=== PATIENT | male | born 1990 | race African-American/Black ===

== ENCOUNTER 2018-09-24 05:16 | Inpatient (IN) | payer SELFPAY ==
[2018-09-24] MEDS ORDERED: Pantoprazole 40 MG VIAL ONE (06:10)
[2018-09-24] MEDS ORDERED: Ondansetron PF 4 MG/2 ML Vial ONE ×2 (06:10→15:52)
[2018-09-24 06:17] LABS: #Basophils 0.1 thou/uL (0.0-0.2); #Eosinphils 0.1 thou/uL (0.0-0.7); #Lymphocytes 2.2 thou/uL (1.20-3.40); #Monocytes 0.8 thou/uL (0.11-0.59); #Neutrophils 9.4 thou/uL (1.40-6.50); %Basophils 0.8 % (0.0-1.0); %Eosinophils 0.8 % (0.0-10.0); %Lymphocytes 17.3 % (21.0-51.0); %Monocytes 6.2 % (0.0-10.0); Hemoglobin 14.9 g/dL (14.0-18.0); Mean Corpuscular HGB CONC 31.3 g/dL (32.0-36.0); Mean Corpuscular Hemoglobin 27.8 pg (27.0-31.0); Mean Corpuscular Volume 88.9 fL (78.0-98.0); Mean Platelet Volume 8.6 fL (7.4-10.4); Platelet Count 196 thou/uL (130-400); RBC Distribution Width 11.5 % (11.5-14.5); Red Blood Cell (RBC) Count 5.34 mill/uL (4.70-6.10); White Blood Cell (WBC) Count 12.6 thou/uL (4.8-10.8)
[2018-09-24 06:30] LABS: ALT (SGPT) 16 U/L (8-55); AST (SGOT) 15 U/L (5-34); Albumin 3.9 g/dL (3.5-5.0); Alkaline Phosphatase 45 U/L (40-150); Anion Gap 10 mmol/L (10-20); BUN (Urea Nitrogen) 9 mg/dL (8.9-20.6); Bilirubin, Total 0.6 mg/dL (0.2-1.2); Calc. Creatinine Clearance 0 mL/min (70-130); Calcium 8.9 mg/dL (7.8-10.44); Carbon Dioxide 29 mmol/L (22-29); Chloride 106 mmol/L (98-107); Estimated GFR-MDRD Greater than 90; Globulin 2.3 g/dL (2.4-3.5); Glucose 133 mg/dL (70-105); Lipase 25 U/L (8-78); Potassium 3.6 mmol/L (3.5-5.1); Protein, Total 6.2 g/dL (6.0-8.3); Sodium 141 mmol/L (136-145)
[2018-09-24] MEDS ORDERED: Metoclopramide HCl 10 MG/2 ML VIAL ONE (06:45)
[2018-09-24] MEDS ORDERED: Dicyclomine 20 MG TAB ONE (06:45)
[2018-09-24] MEDS ORDERED: diphenhydrAMINE 50 MG/ML VIAL ONE (06:45)
[2018-09-24 07:27] LABS: Acetaminophen Less than 6.0 mcg/mL (10.0-30.0); Alcohol Less than 10 mg/dL (Less than 10); Salicylate Less than 8.0 mg/dL (15.0-30.0)
[2018-09-24 07:32] LABS: Bilirubin Negative (Negative); Blood, Urine Negative (Negative); Clarity CLOUDY (Clear); Glucose, Urine (Dipstick) Negative (Negative); Leukocyte Negative (Negative); Nitrite Negative (Negative); Protein, Urine (Dipstick) Negative (Neg-Trace); Urobilinogen 0.2 mg/dL (0.2-1.0); pH, Urine 7.5 (5.0-9.0)
[2018-09-24] MEDS ORDERED: Promethazine HCl 25 MG/ML VIAL ONE (07:38)
[2018-09-24 07:41] LABS: Amphetamine Not Detected (NotDetected); Barbiturates Screen Not Detected (NotDetected); Benzodiazepine Screen Not Detected (NotDetected); Cocaine Metabolite Screen Not Detected (NotDetected); Medtox Control Line Valid? VALID (VALID); Medtox Reader # READER 1; Methadone Not Detected (NotDetected); Methamphetamine Not Detected (NotDetected); Opiate Screen Not Detected (NotDetected); Oxycodone Screen Not Detected (NotDetected); Phencyclidine (PCP) Not Detected (NotDetected); THC/Cannabinoid Screen Detected (NotDetected); Tricyclic Screen Not Detected (NotDetected)
[2018-09-24] MEDS ORDERED: Haloperidol Lactate 5 MG/ML VIAL ONE (08:52)
--- NOTE | 2018-09-24 09:07 | CT ---
CT ABDOMEN AND PELVIS WITH IV CONTRAST: HISTORY: Abdominal pain associated with nausea and vomiting. FINDINGS: Lung bases unremarkable. The liver, spleen, pancreas, adrenal glands, and left kidney are normal. T here is an 8 mm cyst of the inferior pole of the right kidney. The gallbladder is distended with a t iny calcified gallstone. No free air or lymphadenopathy is seen in the abdomen or pelvis. There is a tiny amount of fluid in the right lower quadrant adjacent to the cecum. There is fecal material in the colon. An appendix is not definitely seen. No acute osseous abnormalities are identified. IMPRESSION: 1. Distended gallbladder with cholelithiasis. 2. A tiny amount of free fluid adjacent to the cecum. Appendix is not definitely visualized. If th ere is concern for appendicitis, exam should be repeated with enteric and IV contrast. POS: TARA
[2018-09-24] MEDS ORDERED: Diltiazem 125 MG in Sodium Chloride 0.9% 100 ML IVPB SCH ×2 (09:15→12:00)
[2018-09-24 11:14] LABS: CKMB 1.6 ng/mL (0-6.6); Troponin I Less than 0.010 ng/mL (< 0.028)
[2018-09-24] MEDS ORDERED: Ondansetron PF 4 MG/2 ML Vial IVP PRN (11:37)
[2018-09-24] MEDS ORDERED: Acetaminophen 325 MG TAB PO PRN (11:37)
[2018-09-24] MEDS ORDERED: Ondansetron ODT 4 MG TAB SL PRN (11:37)
[2018-09-24] MEDS ORDERED: Loperamide HCl 2 MG CAP PO PRN (11:50)
[2018-09-24] MEDS ORDERED: Morphine 2 MG/ML SYRINGE SLOW IVP PRN ×2 (11:56→21:29)
[2018-09-24] MEDS: Sodium Chloride 0.9% 1,000 ML IV SCH ×2 (13:13→22:53)
[2018-09-24] MEDS ORDERED: ISOVUE-370 76%-LOCM 1 ML ONE (13:19)
--- NOTE | 2018-09-24 13:59 | ULT ---
ULTRASOUND ABDOMEN LIMITED RIGHT LOWER QUADRANT: DATE: 09/24/2018. HISTORY: A 28-year-old male with right lower quadrant abdominal pain and nausea. TECHNIQUE: A focused ultrasound of the right lower quadrant. FINDINGS: The appendix is not visualized. IMPRESSION: Nondiagnostic for appendicitis. POS: CET
--- NOTE | 2018-09-24 14:10 | ULT ---
ULTRASOUND ABDOMEN LIMITED: (RIGHT UPPER QUADRANT) DATE: 09-24-18 HISTORY: 28-year-old male with generalized abdominal pain, nausea, and vomiting. FINDINGS: Gallbladder: Distended. Diffuse mild wall thickening of 3 mm. Within the body and fundus, there is a dependent layer of multiple tiny gallstones, a few mm in size each. Common duct: 6 mm Liver: Normal echogenicity. Pancreas: Normal sonographic appearance. Right kidney: No hydronephrosis. IMPRESSION: 1. Positive for cholelithiasis. 2. Mild mural thickening of the gallbladder. 3. Common duct caliber minimally dilated. JN R POS: CET
[2018-09-24 14:21] VITALS: BMI 21.1
[2018-09-24] MEDS: Piperacillin/Tazobactam 3.375 GM in Sodium Chloride 0.9% 100 ML IVPB SCH ×2 (14:43→22:54)
--- NOTE | 2018-09-24 14:51 | RAD ---
CHEST 1 VIEW: HISTORY: Atrial fibrillation. COMPARISON: None. FINDINGS: Normal cardiac silhouette. The pulmonary vessels and hilum are normal. No masses or consolidation. No pneumothorax or osseous abnormalities. IMPRESSION: No acute cardiopulmonary process. POS: MILEYH
--- NOTE | 2018-09-24 14:58 | CON ---
DATE OF CONSULTATION: 09/24/2018. REQUESTING PHYSICIAN: Dr. Gris Jimenez. HISTORY OF PRESENT ILLNESS: This is a 28-year-old -[place] man who presented to the emergenc y department today. The patient gives a history of insidious onset periumbilical abdominal pain, whi ch started at approximately 0100 hours associated with multiple episodes of nausea and vomiting. The patient denies any diarrhea. He rated his pain at 9/10. The pain has since settled in the right lo wer quadrant. He denies any fevers or chills. Currently, he rates his pain at 10/10. The patient d enies any unexplained weight loss. PAST MEDICAL HISTORY: Denies any previous medical problems except eczema. PAST SURGICAL HISTORY: Denies any previous surgeries. FAMILY HISTORY: Notable for diabetes mellitus and essential hypertension in some aunts. He denies a ny family history of cancer or heart disease. SOCIAL HISTORY: He is employed as a patient account specialist. He admits to occasional intake of ethanol in modera te amounts. He smokes marijuana occasionally. He denies any illicit drug abuse. PREHOSPITALIZATION MEDICATIONS: None. ALLERGIES: Patient denies any known drug allergies. REVIEW OF SYSTEMS: A 10-point review of systems essentially unremarkable except for as stated in pas t medical history and chief complaint. PHYSICAL EXAMINATION: GENERAL: This reveals a 28-year-old normally developed man who was otherwise coherent and interactiv e and appears stated age. The patient is alert and oriented x3, appears to be in moderate acute dist ress secondary to abdominal pain. VITAL SIGNS: Initially, blood pressure 174/87, pulse 115 and irregular, respiratory rate is 18, temp erature is 98.7 degrees Fahrenheit, oxygen saturation 100% on room air. HEENT: Reveals normocephalic and atraumatic. Pupils are equal, round, and reactive to light and acc ommodation. Extraocular muscles are intact bilaterally. He has no sclerae icterus present. Oral mu cosa is pink and moist. No lesions are noted. NECK: Supple. No palpable lymphadenopathy or thyromegaly present. CARDIOVASCULAR: Heart reveals irregular rate and irregular rhythm. LUNGS: Clear to auscultation bilaterally. Breathing regular and unlabored. ABDOMEN: Soft and nondistended. He has right lower quadrant greater than left lower quadrant tender ness to palpation. He has a positive Rovsing sign. Interestingly, the patient also exhibits some ep igastric to right upper quadrant abdominal pain to palpation without any positive Loaiza's. Liver an d spleen are nonpalpable below costal margins. EXTREMITIES: Reveals 2+ radial and pedal pulses bilaterally. No ankle edema is present. NEUROLOGIC: Reveals no focal deficits present. LABORATORY DATA: Today includes a CBC with 12,600 white blood cells, hemoglobin and hematocrit are 1 4.9 and 47.4 respectively. Platelet count is 196,000. Metabolic profile: Sodium 141, potassium 3.6 , chloride is 106, bicarbonate is 29, BUN is 9, creatinine is 1.13, glucose 133, total bilirubin is 0 .6, AST and ALT are noted at 15 and 16 respectively. Serum lipase is also normal at 25. I personally reviewed a CT scan of the abdomen and pelvis, which revealed a distended gallbladder wit h intraluminal gallstones. There is a small amount of free fluid around the cecum. I was not able t o visualize the appendix. I have also reviewed the gallbladder ultrasound, which is remarkable for d istended gallbladder with multiple intraluminal gallstones. There is a gallbladder wall thickening w ithout any pericholecystic fluid present. Common bile duct is upper limits of normal for this patien t's age at 5.8 mm in diameter. IMPRESSION: 1. Acute cholecystitis with cholelithiasis. 2. Highly probable acute appendicitis. PLAN: 1. Laparoscopic cholecystectomy and laparoscopic appendectomy. I have discussed the above findings and recommendation with the patient in the presence of his nurse. 2. I have informed the patient of the risks and benefits of the proposed surgery to include, but not limited to bleeding, infection, injury to bowel, common bile duct or surrounding structures. I also informed the patient that a laparoscopic appendectomy will be warranted in this setting, even if the appendix is judged to be normal on laparoscopic examination due to the patient's history of periumbi lical abdominal pain, which has now settled in the right lower quadrant. The patient indicates under standing of information I have given him today. I answered his questions. Thank you again Dr. Jimenez for allowing me the opportunity to participate in the care of this patient.
--- NOTE | 2018-09-24 15:29 | CON ---
DATE OF CONSULTATION: 09/24/2018 REASON FOR CONSULTATION: Newly-diagnosed atrial fibrillation. HISTORY OF PRESENT ILLNESS: Mr. Lan Stanton is a 28-year-old man who presented to the hospital today with severe abdominal pain, has been found that he has gallstones and probably also has appendicitis . Incidentally, it is noted that he had atrial fibrillation. There is no history of atrial fibrilla tion, no history of cardiac problems. PAST MEDICAL HISTORY: He does have history of inpatient admission to a psychiatric institution in hi s teens, but not recently. PAST SURGICAL HISTORY: Negative. SOCIAL HISTORY: No alcohol, no drug use. No smoking. REVIEW OF SYSTEMS: Really not accurate or obtainable. He has received quite a bit of pain medicine. He is unable to give a reliable history currently, his girlfriend is with him. PHYSICAL EXAMINATION: GENERAL: It is a 28-year-old gentleman, somewhat confused, looks like from the pain medicine. VITAL SIGNS: Blood pressure was high in the emergency room. The pulse is now [address] recent blood pressure in the emergency room this morning was 150/100. NECK: Neck veins are normal. Carotid normal upstrokes. LUNGS: Clear. CARDIAC: Irregularly irregular and tachycardic, no murmur, rub or gallop. ABDOMEN: Tender, only did light palpation. EXTREMITIES: Warm, dry, no clubbing, cyanosis or edema. SKIN: Warm and dry. LABORATORY AND X-RAY FINDINGS: EKG reveals atrial fibrillation with controlled ventricular response. ASSESSMENT: 1. Newly-diagnosed atrial fibrillation. 2. Abdominal pain, has gallstones, probably also has appendicitis. PLAN: 1. He is on intravenous diltiazem for heart rate control. 2. Echocardiogram to be done likely at a later time. He has to go to surgery urgently. 3. Anticoagulation, certainly not indicated at this point. Also, his CHADS-VASc zero at this point pending echocardiogram, we will follow with you.
[2018-09-24] MEDS ORDERED: PROPOFOL 200 MG/20 ML VIAL ONE (15:52)
[2018-09-24] MEDS ORDERED: Glycopyrrolate 0.2 MG/ML 5 ML SYRINGE ONE (15:52)
[2018-09-24] MEDS ORDERED: Dexamethasone 20 MG/5 ML VIAL ONE (15:52)
[2018-09-24] MEDS ORDERED: Succinylcholine Chloride 20 MG/ML 10 ml SYRINGE FS ONE (15:52)
[2018-09-24] MEDS ORDERED: Lidocaine 1% PF 5 ML VIAL ONE (15:52)
[2018-09-24] MEDS ORDERED: Esmolol 100 MG/10 ML VIAL ONE (15:52)
[2018-09-24] MEDS ORDERED: Bupivacaine/Epinephrine 0.25% 30 ML VIAL ONE (18:45)
[2018-09-24] MEDS ORDERED: Fentanyl 100 MCG/2 ML VIAL ONE ×2 (19:02)
[2018-09-24] MEDS ORDERED: Meperidine HCl/PF 25 MG/ML VIAL ONE (21:14)
[2018-09-24] MEDS ORDERED: traMADol HCl 50 MG TAB PO PRN ×2 (21:27)
[2018-09-24] MEDS: Famotidine/PF 20 mg/2ml Vial SLOW IVP SCH (22:53)
[2018-09-24] MEDS: Acetaminophen 500 MG TAB PO SCH (22:53)
[2018-09-25] MEDS: Ketorolac Tromethamine 30 MG/ML VIAL IVP SCH ×3 (00:45→12:50)
--- NOTE | 2018-09-25 02:03 | HP ---
DATE OF ADMISSION: 09/24/2018 CHIEF COMPLAINT: This is a 28-year-old gentleman who presented with an acute onset of abdominal pain , uncontrollable nausea and vomiting. HISTORY OF PRESENT ILLNESS: This 28-year-old man with no particular medical history who presented to the ER with an acute onset of nausea and vomiting and significant abdominal pain. On evaluation her e in the ER, the patient was found to be in atrial fibrillation with RVR. The patient denies any his tory of known atrial fibrillation. He does not complain of any palpitations or chest pain. Denies a ny fever or chills. When I went to evaluate the patient, the patient was very sleepy because he had received morphine. He did give me some history and rest was all with a discussion with the ER physic ritchie and also the evaluation of the documents and the labs. PAST MEDICAL HISTORY: Not significant. PAST SURGICAL HISTORY: Not significant. ALLERGIES: The patient denies any allergies. REVIEW OF SYSTEMS: Constitutional: The patient with a significant distress. Denies any fever or ch ills. HEENT: The patient denies any chest pain, no eye pain. Denies any eye pain or ear pain. No discharge from the eyes or the ears. Denies any sore throat. Dry mouth. Cardiovascular: The patient denies any palpitations or chest pain. Respiratory: The patient denies any cough or shortness of breath. Gastrointestinal: Please see HPI. Significant for abdominal ganesh n, nausea, and vomiting. Denies any diarrhea. Musculoskeletal: Negative for any complaints of extr emity pain and swelling. Skin: Denies any rash or redness. PHYSICAL EXAMINATION: VITAL SIGNS: Blood pressure 156/104, pulse 110 and irregular, respiratory rate around 20, temperatur e 97.8, pain 10/10, O2 sats on room air around 100. CONSTITUTIONAL: The patient is in significant distress and curling up and trying to sleep also becau se of the narcotics. HEENT: Normocephalic, atraumatic head. Eyelids and conjunctivae is within normal limits. Pupils ar e round and reactive. External ears and canals are within normal limits. NECK: Trachea is midline. Tonsils are within normal limits. RESPIRATORY: No respiratory distress noted. Good airway entry into both lungs. No wheezes, no rale s. HEART: Rapid irregular heartbeat. No murmurs. ABDOMEN: Extremely tender all over especially on the right upper and right lower quadrant. NEUROLOGIC: No focal deficits. Cranial nerves intact. The patient is moving all extremities. Gait not observed. LABORATORY DATA: 1. Significant for white blood count of 12.6, sodium and potassium within normal limits. Echo withi n normal limits. 2. CT of the abdomen shows cholelithiasis with distention of the gallbladder, questionable belen endicitis. 3. Ultrasound of the abdomen shows distended gallbladder with cholelithiasis with no obvious signs o f appendicitis. ASSESSMENT AND PLAN: 1. Intraabdominal complications, possibly cholelithiasis and appendicitis and urgent stat consult fo r surgery will be done. 2. New onset atrial fibrillation with rapid ventricular response. The patient was started on Cardiz em drip in the ER which will be continued. I would also make a Cardiology consult. 3. Pain control. 4. IV antibiotics. 5. Possible stat surgery for addressing possible cholelithiasis and appendicitis.
[2018-09-25] MEDS: Acetaminophen 500 MG TAB PO SCH ×3 (03:28→15:09)
[2018-09-25] MEDS: Piperacillin/Tazobactam 3.375 GM in Sodium Chloride 0.9% 100 ML IVPB SCH ×3 (03:28→17:04)
--- NOTE | 2018-09-25 04:29 | OP ---
DATE OF PROCEDURE: 09/24/2018 PREOPERATIVE DIAGNOSES: 1. Acute cholecystitis with cholelithiasis. 2. Probable acute appendicitis. POSTOPERATIVE DIAGNOSES: 1. Acute cholecystitis with cholelithiasis. 2. Probable acute appendicitis. PROCEDURES PERFORMED: 1. Laparoscopic cholecystectomy. 2. Laparoscopic appendectomy. SURGEON: Rodger Park D.O. ANESTHESIA: General endotracheal. ESTIMATED BLOOD LOSS: 25 mL. FLUIDS GIVEN: 1700 mL crystalloids. URINARY OUTPUT: 400 mL. SPONGE AND INSTRUMENT COUNT: Certified as correct x2. COMPLICATIONS: None apparent at the time of operation. INDICATIONS FOR PROCEDURE: This is a 28-year-old -Polish man, presented with severe abdomin al pain. Clinical and radiographic examination was consistent with acute cholecystitis with cholelit hiasis. CT scan of the abdomen and pelvis failed to reveal the appendix; however, there was free flu id around the cecum. The patient's clinical examination; however, further revealed right lower quadr ant abdominal pain in addition to epigastric abdominal pain. Decision was made to bring the patient to the operating room for laparoscopic cholecystectomy and laparoscopic appendectomy. Findings are c onsistent with elongated gallbladder in the usual anatomic location partially encased by omental adhe sions. The fundus of the gallbladder also was purplish discolored. Appendix itself, although dilate d, did not seem inflamed. Given the unusual clinical presentation, we decided to remove the appendix as well. DESCRIPTION OF PROCEDURE: Informed consent obtained from the patient who was brought to the operatin g room and placed in supine position. Following general anesthesia, abdomen was sterilely prepped an d draped in usual fashion. The skin below the umbilicus was infiltrated with 0.25% Marcaine with epi nephrine. A small curvilinear infraumbilical incision was made using an 11 scalpel. Umbilical stalk grasped with Toma's and elevated. Veress needle was inserted through the incision and placed in t he peritoneal cavity through which the abdomen was insufflated with 3 liters of CO2 gas. Intraabdomi nal pressure was noted at 1 mmHg. Following abdominal insufflation, Veress needle was removed and a 5-mm trocar introduced using the Visiport under laparoscopy. Laparoscopy confirmed proper placement of the port, no injuries to underlying structures. Additional laparoscopy reveals gallbladder in the usual anatomic location, partially encased by omental adhesions. Under direct laparoscopy, a 12-mm epigastric and two 5 mm right lateral subcostal ports were placed after the overlying skin was infilt rated with 0.25% Marcaine with epinephrine and appropriate incision was made. The patient was placed in the reverse Trendelenburg position, rotated to his left. I introduced [place] dissector with ca utery to take down omental adhesions. A Prestige grasper was introduced through the right lateral galarza bcostal port grasping the fundus of the gallbladder which was to be elevated cephalad. However, the gallbladder was markedly elongated, distended and tense. We decided to decompress the gallbladder. This was accomplished using an Endo suction catheter with cautery to perform a cholecystotomy at the dome of the gallbladder, evacuating excess white bile. The Prestige grasper was then applied at the fundus of the gallbladder which was elevated cephalad. Omental adhesions were taken down from the re mainder of the gallbladder. A second Prestige grasper was introduced through the right medial subcos ady port grasping the Restrepo's pouch which was retracted laterally. The cystic duct was carefully di ssected free from surrounding structures at the triangle of Calot. The duct was divided between clip s, applying two clips proximally and one clip at the junction of the cystic duct and gallbladder. Th e cystic artery dissected free from surrounding structures and divided between clips in a similar fas hion. Gallbladder itself was removed from the liver bed using cautery with good hemostasis. Gallbla dder was delivered off the abdominal cavity using an EndoCatch. Operative site was irrigated with sa line, noting good hemostasis in place. All clips remain in place, no bile stains present. Finding n o other pathology here, we then turned our attention to the pelvis. At this juncture, the patient wa s placed in a Trendelenburg position. He remains rotated to his left. I used the Prestige grasper t o lift the omentum off of the cecum. Terminal ileum was traced from the ileocecal junction to proxim al 2 feet. No Meckel's diverticulum was noted. A dilated, but normal appearing appendix was noted i n the usual anatomic location. I introduced an Endo [place] forceps grasping the appendix which was elevated. I used a [place] dissector to create a rent through the mesoappendix at the base. Using an Endo-VANDANA with a blue load, the appendix was divided at the appendical cecal junction. Using a whi te load of the Endo-VANDANA, the mesoappendix was divided without incident. The appendix itself was deli fausto off the abdominal cavity using an EndoCatch. There was minor oozing over the staple line of th e mesoappendix. Immediate hemostasis was achieved using cautery. I then placed 1 x 2 inch piece of fibula over the staple line of the mesoappendix and the staple line of the appendicocecal junction. Finding no other pathology, laparoscopy was terminated at this juncture. Fascia of the epigastric po rt was closed using 0 Vicryl suture and Endo closure device under laparoscopy. Abdomen was desufflat ed. All ports and instruments removed and accounted for. Skin incisions were closed using 4-0 Monoc ryl suture in subcuticular fashion. Dermabond was applied over incisional closure. The patient tole rated the operation without any apparent complication and was returned to recovery room in satisfacto ry condition.
[2018-09-25] MEDS: Sodium Chloride 0.9% 1,000 ML IV SCH ×2 (05:29→12:51)
[2018-09-25 06:02] LABS: #Lymphocytes 0.8 thou/uL (1.20-3.40); #Monocytes 0.9 thou/uL (0.11-0.59); %Basophils 0.1 % (0.0-1.0); %Lymphocytes 6.1 % (21.0-51.0); %Neutrophils 86.8 % (42.0-75.0); Hemoglobin 13.5 g/dL (14.0-18.0); Mean Corpuscular HGB CONC 31.3 g/dL (32.0-36.0); Mean Corpuscular Hemoglobin 27.3 pg (27.0-31.0); Mean Corpuscular Volume 87.3 fL (78.0-98.0); Mean Platelet Volume 9.3 fL (7.4-10.4); Platelet Count 187 thou/uL (130-400); RBC Distribution Width 11.4 % (11.5-14.5); Red Blood Cell (RBC) Count 4.95 mill/uL (4.70-6.10); White Blood Cell (WBC) Count 12.6 thou/uL (4.8-10.8)
[2018-09-25 06:14] LABS: Anion Gap 7 mmol/L (10-20); Calcium 8.3 mg/dL (7.8-10.44); Carbon Dioxide 23 mmol/L (22-29); Chloride 111 mmol/L (98-107); Glucose 105 mg/dL (70-105); Potassium 4.2 mmol/L (3.5-5.1); Sodium 137 mmol/L (136-145)
[2018-09-25 06:20] LABS: BUN (Urea Nitrogen) 6 mg/dL (8.9-20.6); Calc. Creatinine Clearance 131 mL/min (70-130); Estimated GFR-MDRD Greater than 90
[2018-09-25 07:17] LABS: ALT (SGPT) 26 U/L (8-55); AST (SGOT) 33 U/L (5-34); Albumin 3.3 g/dL (3.5-5.0); Alkaline Phosphatase 44 U/L (40-150); Bilirubin, Direct 0.5 mg/dL (0.1-0.3); Bilirubin, Total 1.2 mg/dL (0.2-1.2); Protein, Total 5.5 g/dL (6.0-8.3)
[2018-09-25] MEDS ORDERED: Polyethylene Glycol 3350 17 GM Packet PO SCH (09:00)
[2018-09-25] MEDS ORDERED: Senokot 8.6 MG TAB PO SCH (09:00)
[2018-09-25] MEDS: Famotidine/PF 20 mg/2ml Vial SLOW IVP SCH (09:42)
--- NOTE | 2018-09-25 10:39 | PRG ---
DATE OF SERVICE: 09/25/2018 Mr. Stanton is feeling much better today. No chest pain or pressure. He converted to sinus rhythm yesterday. PHYSICAL EXAMINATION: VITAL SIGNS: Blood pressure 123/63, pulse is 60. LUNGS: Clear. CARDIAC: Normal S1, normal S2. There is no murmur, rub or gallop. ABDOMEN: Incision sites look fine. EXTREMITIES: Warm and dry. ASSESSMENT: 1. Paroxysmal atrial fibrillation associated with intra-abdominal infections with appendicitis and c holecystitis. 2. CHADs VAS 0. PLAN: 1. Okay with me to go home after echocardiogram is done if it looks okay. 2. Anticoagulation is not indicated in a CHADs VAS 0 patient, especially after surgery. 3. TSH is low, needs to be evaluated for hyperthyroidism.
[2018-09-25 12:25] VITALS: TEMP 98.1
[2018-09-25 15:40] VITALS: BP 136/96
--- NOTE | 2018-09-25 17:08 | PRG ---
DATE OF SERVICE: 09/25/2018 SUBJECTIVE: Mr. Stanton is a 28-year-old -[place] man who is postoperative day #1 status post l aparoscopic cholecystectomy and laparoscopic appendectomy. He is awake and alert today, reporting mi nimum abdominal pain which is really incisional in nature. He is tolerating general diet. He is pas sing flatus and has adequate urinary output. PHYSICAL EXAMINATION: VITAL SIGNS: This morning includes blood pressure 117/65, pulse is 95, respiratory rate is 18, tempe rature is 98.1 degrees Fahrenheit, oxygen saturation is 99% on room air. GENERAL: The patient had a transient bout of paroxysmal atrial fibrillation yesterday which converte d to normal sinus rhythm intraoperatively. He has remained in normal sinus rhythm after surgery yest erday. HEART: Reveals regular rate and rhythm, no murmurs or gallops auscultated. CHEST: Clear to auscultation bilaterally. Breathing regular and unlabored. ABDOMEN: Soft. All incisions are intact, clean, and dry. He has incisional tenderness to palpation , no gross rebound tenderness present. LABORATORY DATA: Today includes CBC with 12,600 white blood cells, hemoglobin and hematocrit are sta ble at 13.5 and 43.3 respectively. Platelet count is 187,000. Metabolic profile: Sodium 137, potas sium is 4.2, chloride is 111, bicarbonate is 23, BUN 6, creatinine 0.86, glucose is 105. Total bilir ubin 1.2, AST and ALT remained normal at 33 and 26 respectively. IMPRESSION: Postoperative day #1 status post laparoscopic cholecystectomy and laparoscopic appendect dimas. The patient is hemodynamically stable for discharge from a surgical standpoint. He follows up with me in the Surgery Clinic in 2 weeks. I have instructed him to avoid weightlifting in excess of 20 pounds until he has been seen by me. He may call me with any questions or problems including exac erbation of abdominal pain, fever in excess of 101 degrees Fahrenheit, or any abnormal drainage from incisional wounds. He is encouraged to ambulate daily to avoid complications of venous thromboemboli sm. The patient indicates understanding of the information given. I answered his questions. The xuan granda has expressed gratitude for the care rendered to him through this hospitalization and surgery.
--- NOTE | 2018-09-26 01:55 | DIS ---
DATE OF ADMISSION: 09/24/2018 DATE OF DISCHARGE: 09/25/2018 ADMISSION DIAGNOSES: 1. Atrial fibrillation with rapid ventricular response. 2. Acute cholecystitis with cholelithiasis. 3. Possible appendicitis. DISCHARGE DIAGNOSES: 1. Atrial fibrillation with rapid ventricular response is resolved. The patient in sinus rhythm. 2. Status post cholecystectomy for cholecystitis with cholelithiasis. HISTORY OF PRESENT ILLNESS AND HOSPITAL COURSE: This is a 28-year-old male with no significant past medical history who presented to the ER with 1-day history of significant nausea, vomiting, and abdom inal pain. The patient was admitted for further evaluation and treatment, and a CT of the abdomen sh owed cholelithiasis with enlarged gallbladder. The patient's abdominal pelvic ultrasound showed a di stended gallbladder with cholelithiasis and questionable appendicitis. The patient was then started on a Cardizem drip in the ER and was taken to the OR on the same evening of the admission where he co nverted to sinus rhythm for which the Cardizem drip was discontinued. The patient then underwent lap aroscopic cholecystectomy and appendectomy. The appendix looked enlarged but healthy. The patient c ontinued to do well status post surgery and he continued to be in the sinus rhythm. The patient then was started on the clear liquid diet and advanced rapidly. He responded well and was discharged jason e to follow up with the surgeon in a week to 10 days. The patient also was advised not to take any m arijuana. The patient's TSH was depressed and he was advised to follow up with his primary care phys ician about his thyroid levels. PATIENT INSTRUCTIONS: 1. Activity as tolerated and please do not lift any weight until further instructed by the surgeon. 2. Advance the diet as tolerated to regular diet. 3. Please follow up with the surgeon within next 10 days. 4. Stop marijuana.
--- NOTE | 2018-09-27 17:05 | EKG ---
Test Reason : Blood Pressure : / mmHG Vent. Rate : 133 BPM Atrial Rate : 166 BPM P-R Int : 000 ms QRS Dur : 082 ms QT Int : 256 ms P-R-T Axes : 000 082 -40 degrees QTc Int : 381 ms Poor data quality, interpretation may be adversely affected Atrial fibrillation with rapid ventricular response with occasional atrial-paced complexes Nonspecific ST and T wave abnormality Abnormal ECG Confirmed by SEBASTIAN DYER ([id number]), editorial assistant JAKOB EPÑA ([id number] on 09/27/2018 5:04:26 PM Referred By: Confirmed By:SEBASTIAN DYER
== END 2018-09-25 15:37 | disposition home or self-care (01) | DRG 418 ==
LOC: ERS 05:16 → 2NO 10:17
PROVIDERS: ADMIT Family Medicine; ATTEND Family Medicine
PROC: 0FT44ZZ Resection of Gallbladder, Percutaneous Endoscopic Approach (ICD-10-PCS; principal; 2018-09-24)
PROC: 0DTJ4ZZ Resection of Appendix, Percutaneous Endoscopic Approach (ICD-10-PCS; 2018-09-24)
DX: K80.00 Calculus of gallbladder with acute cholecystitis without obstruction (principal); K35.80 Unspecified acute appendicitis
CPT/HCPCS: 36415; 71045; 74177; 76705; 80048; 80053; 80076; 80306; 80307; 81003; 82553; 83690; 83880; 84443; 84484; 85025; 88304; 93005; 93306; 96361; 96365; 96367; 96372; 96375; 96376; C9113; J0744; J1100; J1200; J1630; J1885; J2001; J2175; J2405; J2543; J2550; J2704; J2765; J3010; J7050; S0028

== ENCOUNTER 2018-10-17 08:58 | Emergency (ER) | payer SELFPAY ==
[2018-10-17] MEDS ORDERED: Ketorolac Tromethamine 30 MG/ML VIAL ONE (10:23)
--- NOTE | 2018-10-17 11:05 | RAD ---
ABDOMEN TWO VIEWS: Date: 10-17-18 Comparison: None. History: Generalized abdominal pain, constipation. FINDINGS: Clips in the right upper quadrant suggest prior cholecystectomy. Upright imaging demonstrates no free intraperitoneal air or air fluid levels. The bowel gas pattern is nonobstructed. IMPRESSION: No acute findings. POS: TARA
[2018-10-17 12:38] LABS: #Eosinphils 0.1 thou/uL (0.0-0.7); #Lymphocytes 1.5 thou/uL (1.20-3.40); #Monocytes 0.6 thou/uL (0.11-0.59); #Neutrophils 5.8 thou/uL (1.40-6.50); %Basophils 0.4 % (0.0-1.0); %Eosinophils 0.9 % (0.0-10.0); %Lymphocytes 18.3 % (21.0-51.0); %Monocytes 7.9 % (0.0-10.0); %Neutrophils 72.6 % (42.0-75.0); Hemoglobin 14.3 g/dL (14.0-18.0); Mean Corpuscular HGB CONC 31.5 g/dL (32.0-36.0); Mean Corpuscular Hemoglobin 27.1 pg (27.0-31.0); Mean Corpuscular Volume 86.1 fL (78.0-98.0); Mean Platelet Volume 8.3 fL (7.4-10.4); Platelet Count 199 thou/uL (130-400); RBC Distribution Width 11.2 % (11.5-14.5); Red Blood Cell (RBC) Count 5.28 mill/uL (4.70-6.10)
[2018-10-17 13:03] LABS: ALT (SGPT) 9 U/L (8-55); AST (SGOT) 12 U/L (5-34); Albumin 4.1 g/dL (3.5-5.0); Alkaline Phosphatase 72 U/L (40-150); Anion Gap 13 mmol/L (10-20); BUN (Urea Nitrogen) 6 mg/dL (8.9-20.6); Bilirubin, Total 1.2 mg/dL (0.2-1.2); Calc. Creatinine Clearance 0 mL/min (70-130); Calcium 9.2 mg/dL (7.8-10.44); Carbon Dioxide 24 mmol/L (22-29); Chloride 106 mmol/L (98-107); Estimated GFR-MDRD Greater than 90; Glucose 72 mg/dL (70-105); Lipase 12 U/L (8-78); Potassium 4.6 mmol/L (3.5-5.1); Protein, Total 7.1 g/dL (6.0-8.3); Sodium 138 mmol/L (136-145)
== END 2018-10-17 14:00 | disposition home or self-care (01) ==
LOC: ERS 08:58
DX: R10.11 Right upper quadrant pain (principal); F31.9 Bipolar disorder, unspecified
CPT/HCPCS: 36415; 74019; 80053; 83690; 85025; 96361; 96374; J1885

== ENCOUNTER 2018-10-19 12:23 | Emergency (ER) | payer SELFPAY ==
[2018-10-20] MEDS ORDERED: Fentanyl 100 MCG/2 ML VIAL ONE (10:58)
== END 2018-10-19 12:43 ==
LOC: ERS 12:23
DX: Z53.21 Procedure and treatment not carried out due to patient leaving prior to being seen by health care provider (principal)
CPT/HCPCS: J3010

== ENCOUNTER 2018-10-19 16:28 | Inpatient (IN) | payer SELFPAY ==
[~2018-10-19 16:28] MED LIST: Iopamidol 370 76% 100 ML VIAL ONE; Iopamidol 370 76% 50 ML VIAL FS ONE
[2018-10-19 17:21] LABS: #Lymphocytes 0.8 thou/uL (1.20-3.40); #Monocytes 0.3 thou/uL (0.11-0.59); #Neutrophils 5.2 thou/uL (1.40-6.50); %Basophils 0.1 % (0.0-1.0); %Eosinophils 0.4 % (0.0-10.0); %Lymphocytes 13.1 % (21.0-51.0); %Monocytes 4.1 % (0.0-10.0); %Neutrophils 82.3 % (42.0-75.0); Hemoglobin 16.6 g/dL (14.0-18.0); Mean Corpuscular HGB CONC 33.4 g/dL (32.0-36.0); Mean Corpuscular Hemoglobin 28.8 pg (27.0-31.0); Mean Corpuscular Volume 86.3 fL (78.0-98.0); Mean Platelet Volume 8.6 fL (7.4-10.4); Platelet Count 232 thou/uL (130-400); RBC Distribution Width 11.3 % (11.5-14.5); Red Blood Cell (RBC) Count 5.77 mill/uL (4.70-6.10); White Blood Cell (WBC) Count 6.4 thou/uL (4.8-10.8)
[2018-10-19] MEDS ORDERED: Ondansetron PF 4 MG/2 ML Vial ONE (17:33)
[2018-10-19] MEDS ORDERED: Morphine 4 MG/ML VIAL ONE (17:35)
[2018-10-19 17:45] LABS: ALT (SGPT) 330 U/L (8-55); AST (SGOT) 258 U/L (5-34); Albumin 4.8 g/dL (3.5-5.0); Alkaline Phosphatase 232 U/L (40-150); Anion Gap 19 mmol/L (10-20); BUN (Urea Nitrogen) 8 mg/dL (8.9-20.6); Bilirubin, Total 9.1 mg/dL (0.2-1.2); Calc. Creatinine Clearance 0 mL/min (70-130); Calcium 10.6 mg/dL (7.8-10.44); Carbon Dioxide 22 mmol/L (22-29); Chloride 101 mmol/L (98-107); Estimated GFR-MDRD Greater than 90; Globulin 3.8 g/dL (2.4-3.5); Glucose 89 mg/dL (70-105); Lipase 15 U/L (8-78); Potassium 4.1 mmol/L (3.5-5.1); Protein, Total 8.6 g/dL (6.0-8.3); Sodium 138 mmol/L (136-145)
[2018-10-19] MEDS ORDERED: Ketorolac Tromethamine 30 MG/ML VIAL ONE (18:48)
[2018-10-19 18:54] LABS: Blood, Urine Negative (Negative); Clarity CLEAR (Clear); Glucose, Urine (Dipstick) Negative (Negative); Protein, Urine (Dipstick) Trace mg/dL (Neg-Trace); Specific Gravity, Urine 1.029 (1.002-1.036)
[2018-10-19 18:56] LABS: Bacteria/HPF None Seen HPF (None Seen); Hyaline Casts/LPF 0-3 HYALINE CAST LPF (0-3 Hyaline); Pathc Cast-AUWi Flag 0.43 (0-2.49); RBC/HPF 0-3 HPF (0-3); Squamous Epithelial None Seen HPF (0-3); WBC/HPF 0-3 HPF (0-3)
[2018-10-19 18:57] LABS: Bilirubin Large (Negative); Leukocyte Trace (Negative); Nitrite Negative (Negative)
[2018-10-19] MEDS ORDERED: Ondansetron ODT 4 MG TAB SL PRN (20:17)
[2018-10-19] MEDS ORDERED: Morphine 2 MG/ML SYRINGE SLOW IVP PRN (20:17)
[2018-10-19] MEDS ORDERED: Ondansetron PF 4 MG/2 ML Vial IVP PRN (20:17)
[2018-10-19] MEDS: Dextrose 5 % And 0.9 % NaCl 1,000 ML IV SCH (20:44)
--- NOTE | 2018-10-19 23:25 | CT ---
CT ABDOMEN AND PELVIS WITH IV CONTRAST: 10/19/18 HISTORY: Abdominal pain with nausea and vomiting. COMPARISON: 09/24/18. FINDINGS: The lung bases are clear. Postcholecystectomy changes are now noted. There is mild intra and extrahepatic biliary ductal dilata tion likely attributable to the post cholecystectomy changes. The liver, spleen, pancreas, bilateral adrenal glands, abdominal aorta and partially distended urinar y bladder demonstrate a normal CT appearance. Subcentimeter too small to characterize hyperdense lesions are again seen at the inferior pole of eac h kidney. There is increased density suture material seen adjacent to the cecal apex which may be secondary to prior appendectomy. The appendix is not visualized on this exam. There is a small amount of free fluid in the pelvis of uncertain etiology. No fluid collection or lymphadenopathy is seen in the abdomen or pelvis. No other interval change. IMPRESSION: 1. Small amount of free fluid in the pelvis of uncertain etiology, but this is abnormal for a m gonzalez patient. 2. Suture material in region of the cecal apex which may be related to prior appendectomy. Clini alexis correlation is recommended. 3. Post cholecystectomy changes. 4. Stable subcentimeter to small to characterize hypodense lesion in the inferior pole of each k idney statistically likely representing cysts. 5. Suggested thickening in the region of the sigmoid colon, but this is likely attributable to i ncomplete distention. POS: TARA
[2018-10-20 01:32] VITALS: BMI 21.6
[2018-10-20] MEDS: Dextrose 5 % And 0.9 % NaCl 1,000 ML IV SCH ×4 (05:51→18:21)
[2018-10-20] MEDS ORDERED: Morphine 2 MG/ML SYRINGE SLOW IVP PRN (07:38)
[2018-10-20] MEDS ORDERED: Ondansetron PF 4 MG/2 ML Vial IVP PRN (07:39)
[2018-10-20] MEDS ORDERED: Ondansetron ODT 4 MG TAB SL PRN (07:39)
[2018-10-20] MEDS ORDERED: Iothalamate Meglumine 60% 50 ML VIAL FS ONE (10:03)
[2018-10-20] MEDS ORDERED: Midazolam HCl 2 mg/2 ml Vial ONE (10:56)
[2018-10-20] MEDS ORDERED: Indomethacin 50 MG SUPP ONE ×2 (10:59→12:28)
[2018-10-20] MEDS ORDERED: Levofloxacin 500 mg/D5W 100 ml Premix Bag ONE (11:36)
[2018-10-20] MEDS ORDERED: Ondansetron PF 4 MG/2 ML Vial ONE ×2 (11:39→12:36)
[2018-10-20] MEDS ORDERED: HYDROmorphone 2 MG/ML VIAL SLOW IVP PRN (12:32)
[2018-10-20] MEDS ORDERED: Promethazine HCl 25 MG/ML VIAL SLOW IVP PRN (12:32)
[2018-10-20] MEDS ORDERED: Promethazine HCl 25 MG/ML VIAL IM PRN (12:32)
[2018-10-20] MEDS ORDERED: Ondansetron HCl/PF 4 MG/2 ML Vial IVP PRN (12:32)
[2018-10-20] MEDS ORDERED: Meperidine HCl/PF 25 MG/ML VIAL SLOW IVP PRN (12:32)
[2018-10-20] MEDS ORDERED: PROPOFOL 200 MG/20 ML VIAL ONE (12:36)
[2018-10-20] MEDS ORDERED: Lidocaine 1% PF 5 ML VIAL ONE (12:36)
[2018-10-20] MEDS ORDERED: Dexamethasone 20 MG/5 ML VIAL ONE (12:36)
[2018-10-20] MEDS ORDERED: Glycopyrrolate 0.2 MG/ML 5 ML SYRINGE ONE (12:36)
[2018-10-20] MEDS ORDERED: Promethazine HCl 25 MG/ML VIAL ONE (13:07)
[2018-10-20] MEDS ORDERED: Meperidine HCl/PF 25 MG/ML VIAL ONE (13:14)
--- NOTE | 2018-10-20 13:31 | RAD ---
ERCP: DATE: 10/20/2018. PROVIDED CLINICAL HISTORY: Abdominal pain. FINDINGS/IMPRESSION: Multiple spot fluoroscopic images of the opacified biliary tree are submitted. Changes of prior chol ecystectomy are seen. There is a rounded filling defect in the common duct on one of the submitted i mages that is not seen on the additional imaging with another radiolucent filling defect seen involvi ng the intrahepatic ductal system on an additional image. These may reflect gas bubbles. Correlate with real-time findings. POS: TARA
[2018-10-20] MEDS ORDERED: hydrALAZINE 20 MG/ML VIAL ONE (13:37)
[2018-10-20] MEDS ORDERED: hydrALAZINE 20 MG/ML VIAL SLOW IVP SCH (13:45)
--- NOTE | 2018-10-20 14:06 | CON ---
DATE OF CONSULTATION: 10/20/2018 GI INPATIENT CONSULTATION NOTE REASON FOR CONSULTATION: Abdominal pain and elevated LFTs. HISTORY OF PRESENT ILLNESS: Lan Stanton is a 28-year-old man, who was admitted to the hospital overnight with abdominal pain and elevated LFTs. He has no significant past medical history until last month. On 09/24/2018, he underwent cholecystectomy with appendectomy with Dr. Park. He was found to have cholelithiasis and omental adhesions around the gallbladder. The patient says that surgery went well and symptoms all essentially resolved for several weeks until just 2 days ago. At that time, he started again having significant abdominal pain all over the abdomen associated with nausea and multiple episodes of emesis. His urine turned dark. He presented to the Emergency Department last night and was found to have elevated LFTs including total bilirubin up to 9.1. A CT of the abdomen and pelvis performed last night did show some intra and extra hepatic biliary dilation. Currently, his pain is moderately controlled requesting more pain medication. He has not had any bowel movement in the last couple of days. He has no fever. No other complaints. REVIEW OF SYSTEMS: Full review of systems including constitutional, head, eyes, ears, nose, throat, GI, , cardiovascular, respiratory, musculoskeletal, neurologic systems is negative except as noted in the HPI. PAST SURGICAL HISTORY: Laparoscopic appendectomy and cholecystectomy on 09/24/2018. ALLERGIES: NO KNOWN DRUG ALLERGIES. MEDICATIONS: 1. Tramadol p.r.n. 2. Ibuprofen 800 mg p.r.n. SOCIAL HISTORY: He denies smoking, alcohol, or drug use. FAMILY HISTORY: Noncontributory. PHYSICAL EXAMINATION: VITAL SIGNS: Temperature 98.2, pulse 80, blood pressure 135/81, and 98% oxygen saturation on room air. GENERAL: This is a 28-year-old man lying in bed comfortably, in mild distress from abdominal pain. EYES: Mild scleral icterus. Extraocular movements intact. ENT: Mucous membranes moist. No oral lesions. LYMPH: No submandibular or supraclavicular lymphadenopathy. THYROID: Nontender to palpation. SKIN: Mild jaundice. HEART: Regular rate and rhythm. LUNGS: Clear to auscultation bilaterally. ABDOMEN: Nondistended. Bowel sounds are present, but hypoactive. Soft. Tender to palpation throughout the abdomen, particularly in the epigastrium. No guarding or rebound tenderness. EXTREMITIES: No peripheral edema. VESSELS: Radial pulses 2+ bilaterally. NEUROLOGIC: Cranial nerves 2 through 12 intact bilaterally. No focal deficits. LABORATORY STUDIES: WBC 6.4, hemoglobin 16.6, and platelets 232. Sodium 138, potassium 4.1, BUN 8, and creatinine 1.0. Total bilirubin 9.1, alkaline phosphatase 232, AST 258, and ALT 330. Note that LFTs spiked up significantly from just 2 days ago and total bilirubin was 1.2, and all transaminases were normal. IMAGING STUDIES: CT of the abdomen and pelvis performed last night demonstrates suture material at the cecal apex consistent with recent appendectomy. There is a small amount of free fluid in the pelvis. There is intra and extra hepatic biliary dilation. Otherwise, normal appearing liver, spleen, and pancreas. ASSESSMENT: 1. Elevated LFTs, acute, in the context of recent laparoscopic cholecystectomy. 2. Biliary dilation, nonspecific, but concerning for likely choledocholithiasis. 3. Generalized abdominal pain, likely secondary to choledocholithiasis. PLAN: I discussed the case with Dr. Vicente. He has a small amount of free fluid in the pelvis, but his presentation really is not consistent with postoperative bile leak as he did so well for several weeks after the surgery. Given that he does have some biliary dilation and such an acute spike in LFTs, this seems most consistent with retained stone in the common bile duct. The patient will need to go for a ERCP. I discussed the procedure in detail with the patient including the risks of post ERCP pancreatitis. The patient desires to proceed. We will hopefully be able to get this done later today. Thank you for the consultation. Please call at anytime with questions or concerns. Job ID: [id number]
[2018-10-20] MEDS ORDERED: traMADol HCl 50 MG TAB PO PRN ×2 (15:32)
[2018-10-20] MEDS: Acetaminophen 500 MG TAB PO PRN (17:38)
[2018-10-20] MEDS ORDERED: Acetaminophen 1,000 MG in Premix Bag 1 BAG IVPB PRN (18:12)
[2018-10-20] MEDS: Ketorolac Tromethamine 30 MG/ML VIAL IVP PRN (18:17)
[2018-10-20] MEDS ORDERED: Morphine 4 MG/ML VIAL SLOW IVP PRN (18:57)
--- NOTE | 2018-10-20 19:01 | OP ---
DATE OF PROCEDURE: 10/20/2018 GI ENDOSCOPY NOTE ARTS ADMINISTRATOR SURGEON: None. PROCEDURES PERFORMED: Endoscopic retrograde cholangiopancreatography with biliary sphincterotomy, mechanical lithotripsy, and stone extraction. INDICATIONS: 1. Elevated LFTs. 2. Dilated common bile duct, all concerning for choledocholithiasis. 3. Generalized abdominal pain. 4. Recent laparoscopic cholecystectomy about 1 month ago. MEDICATIONS: 1. See Anesthesia record. 2. Levofloxacin 500 mg IV. 3. Indomethacin 100 mg per rectum. FINDINGS: After discussion of the risks, benefits, and alternatives of the procedure, informed consent was obtained and witnessed. Pre-endoscopic cardiopulmonary examination was satisfactory. Time-out was performed before sedation was achieved. Sedation was achieved with Anesthesia assistance in the endoscopy unit. The patient was placed on the fluoroscopy table in a prone position, endotracheally intubated. A Pentax adult side-viewing duodenoscope was advanced through the oropharynx and passed beyond the esophagus and into the stomach. Indirect views of the gastric mucosa demonstrated some patchy [id number] erythema. No erosions or ulcerations. The endoscope was advanced beyond the pylorus and into the second portion of the duodenum. The ampulla was brought into view with the endoscope in the short position. The ampulla appeared normal. Using a triple lumen dome-tip sphincterotome and a 0.035 guidewire, we were able to selectively cannulate the common bile duct. The guidewire was passed up into the right intrahepatic system. Biliary cholangiogram was performed. This demonstrated a single filling defect within the mid common bile duct, it measured about 6 mm in diameter. The patient also seems to have somewhat narrow, but smooth common bile duct for the entire distal 3 cm of the common bile duct. I would not particularly call this a biliary stricture. At this point, a generous biliary sphincterotomy was performed. We then attempted to remove the stone with a 9-12 mm extraction balloon. Unfortunately, we were unable to remove the stone beyond this narrow area of the distal common bile duct with the balloon fully inflated or partially inflated. At this point, it was decided to use a wire, lithotripsy basket to crush the stone into smaller fragments. This was performed and was successful. The balloon was passed up into the common bile duct and multiple sweeps were again made. In this fashion, we were able to extract multiple fragments of very hard white gallstone from the common bile duct. One smaller fragment was particularly difficult to remove, but eventually we were able to remove all fragments of the stone from the common bile duct and subsequent cholangiogram demonstrated no persistent filling defects in the CBD. At this point, the wire and working apparatus were completely withdrawn. The endoscope was withdrawn suctioning out excess air and fluid and the procedure was completed. The patient tolerated the procedure well. There were no immediate postprocedure complications. IMPRESSION: 1. Choledocholithiasis, with single approximately 6 mm stone in the common bile duct. Now, status post successful biliary sphincterotomy, mechanical lithotripsy, and extraction of stone fragments. 2. Narrowing of the common bile duct for the distal 3-4 cm. This is smooth in appearance. 3. Mild gastritis. RECOMMENDATIONS: 1. Clear liquid diet, then advance diet as tolerated. 2. Monitor LFTs tomorrow. 3. Monitor for signs of any complications including post ERCP pancreatitis. Job ID: [id number]
[2018-10-20] MEDS ORDERED: Morphine 4 MG/ML VIAL ONE (19:04)
[2018-10-20] MEDS: Enoxaparin Sodium 40 MG/0.4 ML SYRINGE SC SCH (19:58)
--- NOTE | 2018-10-20 22:27 | HP ---
HISTORY OF PRESENT ILLNESS: Lan Stanton is a 28-year-old black male patient, who was seen by Dr. Park and on 09/24/2018, underwent a laparoscopic cholecystectomy and appendectomy for findings of benign appendix that was slightly enlarged, but did not look inflamed near the surgery and acute on chronic cholecystitis, cholelithiasis. At that time, his liver function tests were normal. He states he had done well until the last 2 days when he had increased abdominal pain. He presents to the emergency room, had a bilirubin of 9.1, elevation in his transaminases and alkaline phosphatase. He was admitted, IV fluid hydration, underwent CAT scan of the abdomen and pelvis revealing a small amount of free fluid in the pelvis, otherwise unremarkable changes postcholecystectomy. He has seen Dr. Castellanos, taken for ERCP, sphincterotomy and stone extraction. His duct was small. The patient feels better postoperatively. ALLERGIES: NONE. MEDICATIONS: 1. Tramadol. 2. Ibuprofen. SOCIAL HISTORY: Tobacco and alcohol, none. PAST SURGICAL HISTORY: Laparoscopic appendectomy and cholecystectomy on 09/24/2018. PHYSICAL EXAMINATION: VITAL SIGNS: Height 5 feet 9 inches, weight 146 pounds, and BMI 21. Temperature 98.2, pulse 80, and blood pressure 131/81. HEAD, EARS, EYES, NOSE, AND THROAT: Unremarkable. LUNGS: Clear to auscultation. CARDIAC: Regular rate and rhythm without murmur or gallop. ABDOMEN: Soft, flat, nontender, and nondistended. EXTREMITIES: Unremarkable. ASSESSMENT: Choledocholithiasis, status post endoscopic retrograde cholangiopancreatography and sphincterotomy by Dr. Castellanos after endoscopic retrograde cholangiopancreatography and cholecystectomy on 09/[address] Park. PLAN: Observation in the night and discharge home tomorrow morning likely. Job ID: [id number]
[2018-10-21 06:49] LABS: ALT (SGPT) 183 U/L (8-55); AST (SGOT) 98 U/L (5-34); Albumin 3.3 g/dL (3.5-5.0); Alkaline Phosphatase 169 U/L (40-150); Bilirubin, Direct 2.4 mg/dL (0.1-0.3); Bilirubin, Total 4.1 mg/dL (0.2-1.2); Protein, Total 5.9 g/dL (6.0-8.3)
[2018-10-21] MEDS: Polyethylene Glycol 3350 17 GM Packet PO SCH (08:46)
[2018-10-21] MEDS: Dextrose 5 % And 0.9 % NaCl 1,000 ML IV SCH ×2 (08:47→16:55)
[2018-10-21] MEDS: Ketorolac Tromethamine 30 MG/ML VIAL IVP PRN ×3 (08:52→21:16)
--- NOTE | 2018-10-21 10:27 | PRG ---
DATE OF SERVICE: 10/21/2018 REPORT TITLE: GI Inpatient Daily Progress Note. SUBJECTIVE: Lan had pretty significant pain following the procedure yesterday, but this has slowly been improving over the course of the night and this morning. He was tolerating a liquid diet this morning with no nausea, no worsening of abdominal pain, getting Toradol and tramadol. He has been hemodynamically stable and afebrile. OBJECTIVE: VITAL SIGNS: Temperature 98.6, pulse 74, blood pressure 125/77, 99% oxygen saturation on room air. GENERAL: No acute distress. Walking around the room comfortably. HEART: Regular rate and rhythm. LUNGS: Clear to auscultation bilaterally. ABDOMEN: Bowel sounds are present. Soft and nontender to palpation. EXTREMITIES: No peripheral edema. LABORATORY STUDIES: LFTs have improved. A total bilirubin down from 9.1 to 4.1, AST down from 258 to 98, ALT down from 330 to 183, alkaline phosphatase down from 232 to 169. BUN 8, creatinine 1.00, sodium 138, potassium 4.1. ASSESSMENT AND PLAN: 1. Choledocholithiasis, now status post successful mechanical lithotripsy, biliary sphincterotomy, and extraction of stone fragments from the common bile duct yesterday, 10/20/2018. 2. Elevated LFTs, secondary to biliary obstruction, now improving after ERCP. 3. Generalized abdominal pain, improving after ERCP. I had a long discussion with the patient regarding his ERCP findings. I feel pretty confident that we were able to extract all of the stone fragments. I reviewed with him that the procedure was difficult because he does have a quite narrow distal 3 to 4 cm of the common bile duct. I expect that he will continue to improve rapidly. I think once he is tolerating his diet and if pain is fairly well controlled, he could potentially be discharged from the hospital. I would recommend rechecking LFTs in the next 1 to 2 weeks to ensure they are continuing to normalize. Please call anytime with questions or concerns. Job ID: [id number]
--- NOTE | 2018-10-21 14:07 | PRG ---
DATE OF SERVICE: 10/21/2018 SUBJECTIVE: Mr. Stanton is doing well today. He complains of pain, requiring morphine. OBJECTIVE: VITAL SIGNS: Temperature 98.6 degrees, pulse 89, blood pressure 133/75. LUNGS: Clear to auscultation. CARDIAC: Regular rate and rhythm without murmur or gallop. ABDOMEN: Soft. Mild tenderness diffusely. Nondistended. No peritoneal signs. LABORATORY DATA: None today, except his bilirubin is down from 9.1 to 4.1. His transaminases are near normal. ASSESSMENT AND PLAN: Abdominal pain, post endoscopic retrograde cholangiopancreatography, sphincterotomy. He is requiring morphine and not ready for discharge. We will check a CBC, basic metabolic, lipase today and tomorrow, and hopefully, he will be ready for discharge tomorrow. Job ID: [id number]
[2018-10-21 14:31] LABS: #Lymphocytes 1.7 thou/uL (1.20-3.40); #Monocytes 0.7 thou/uL (0.11-0.59); #Neutrophils 6.4 thou/uL (1.40-6.50); %Basophils 0.5 % (0.0-1.0); %Eosinophils 0.3 % (0.0-10.0); %Lymphocytes 19.2 % (21.0-51.0); %Monocytes 8.1 % (0.0-10.0); %Neutrophils 71.8 % (42.0-75.0); Hemoglobin 14.1 g/dL (14.0-18.0); Mean Corpuscular HGB CONC 31.8 g/dL (32.0-36.0); Mean Corpuscular Hemoglobin 27.3 pg (27.0-31.0); Mean Corpuscular Volume 85.8 fL (78.0-98.0); Mean Platelet Volume 8.8 fL (7.4-10.4); Platelet Count 203 thou/uL (130-400); RBC Distribution Width 11.4 % (11.5-14.5); Red Blood Cell (RBC) Count 5.18 mill/uL (4.70-6.10); White Blood Cell (WBC) Count 8.9 thou/uL (4.8-10.8)
[2018-10-21 14:48] LABS: Anion Gap 7 mmol/L (10-20); BUN (Urea Nitrogen) 6 mg/dL (8.9-20.6); Calc. Creatinine Clearance 127 mL/min (70-130); Calcium 8.9 mg/dL (7.8-10.44); Carbon Dioxide 29 mmol/L (22-29); Chloride 104 mmol/L (98-107); Estimated GFR-MDRD Greater than 90; Glucose 90 mg/dL (70-105); Potassium 3.4 mmol/L (3.5-5.1); Sodium 137 mmol/L (136-145)
[2018-10-21 14:59] LABS: Lipase 3585 U/L (8-78)
[2018-10-21] MEDS ORDERED: Lactated Ringer's 1,000 ML IV SCH (17:00)
[2018-10-21] MEDS: Potassium Chloride 20 MEQ in Lactated Ringer's 1,000 ML IV SCH (17:57)
[2018-10-21] MEDS: Enoxaparin Sodium 40 MG/0.4 ML SYRINGE SC SCH ×2 (21:17→21:20)
[2018-10-22] MEDS: Potassium Chloride 20 MEQ in Lactated Ringer's 1,000 ML IV SCH ×2 (01:23→05:10)
[2018-10-22] MEDS: Ketorolac Tromethamine 30 MG/ML VIAL IVP PRN (05:10)
[2018-10-22] MEDS: Polyethylene Glycol 3350 17 GM Packet PO SCH (07:11)
[2018-10-22 09:59] LABS: #Eosinphils 0.1 thou/uL (0.0-0.7); #Lymphocytes 1.4 thou/uL (1.20-3.40); #Monocytes 0.5 thou/uL (0.11-0.59); %Basophils 0.8 % (0.0-1.0); %Eosinophils 1.3 % (0.0-10.0); %Lymphocytes 23.4 % (21.0-51.0); %Monocytes 7.8 % (0.0-10.0); %Neutrophils 66.7 % (42.0-75.0); Mean Corpuscular HGB CONC 32.2 g/dL (32.0-36.0); Mean Corpuscular Hemoglobin 27.4 pg (27.0-31.0); Mean Corpuscular Volume 85.1 fL (78.0-98.0); Mean Platelet Volume 8.4 fL (7.4-10.4); Platelet Count 161 thou/uL (130-400); RBC Distribution Width 11.3 % (11.5-14.5); Red Blood Cell (RBC) Count 4.74 mill/uL (4.70-6.10)
[2018-10-22 10:18] LABS: ALT (SGPT) 123 U/L (8-55); AST (SGOT) 29 U/L (5-34); Albumin 3.5 g/dL (3.5-5.0); Alkaline Phosphatase 154 U/L (40-150); Anion Gap 8 mmol/L (10-20); BUN (Urea Nitrogen) 7 mg/dL (8.9-20.6); Bilirubin, Direct 1.4 mg/dL (0.1-0.3); Bilirubin, Total 2.5 mg/dL (0.2-1.2); Calc. Creatinine Clearance 146 mL/min (70-130); Carbon Dioxide 25 mmol/L (22-29); Chloride 106 mmol/L (98-107); Estimated GFR-MDRD Greater than 90; Glucose 74 mg/dL (70-105); Lipase 391 U/L (8-78); Potassium 3.8 mmol/L (3.5-5.1); Protein, Total 6.1 g/dL (6.0-8.3); Sodium 135 mmol/L (136-145)
[2018-10-22] MEDS ORDERED: Ibuprofen 600 MG TAB PO PRN (10:49)
[2018-10-22] MEDS: Acetaminophen 500 MG TAB PO PRN (11:32)
[2018-10-22 11:39] VITALS: TEMP 98.1
--- NOTE | 2018-10-22 12:03 | PRG ---
DATE OF SERVICE: 10/22/2018 SUBJECTIVE: Lan Stanton is doing well today. Laboratories yesterday revealed pancreatitis abdominal pain occurring post ERCP. Today, he feels much better. He is not having any pain. He is not requiring narcotics anymore. He is hungry. OBJECTIVE: VITAL SIGNS: Temperature 98.7 degrees, pulse 74, blood pressure 139/75. LUNGS: Clear to auscultation. CARDIAC: Regular rate and rhythm without murmur or gallop. ABDOMEN: Soft and nontender. No masses. EXTREMITIES: Unremarkable. LABORATORY DATA: This morning, his white count is 6, hemoglobin 13. His lipase has dropped from 3585 yesterday to 391 today. Bilirubin is down to 1.4. Transaminases are improved. Basic metabolic profile is normal. Potassium is 3.8. ASSESSMENT AND PLAN: Post laparoscopic cholecystectomy, retained stone, status post endoscopic retrograde cholangiopancreatography with post endoscopic retrograde cholangiopancreatography pancreatitis. This is now resolved. Discharge to home with [id number] Tylenol and Motrin for pain. Follow up with Dr. Park in the next two weeks. Job ID: [id number]
[2018-10-22 13:48] VITALS: BP 144/76
--- NOTE | 2018-10-22 22:29 | EKG ---
Test Reason : Blood Pressure : / mmHG Vent. Rate : 069 BPM Atrial Rate : 069 BPM P-R Int : 166 ms QRS Dur : 100 ms QT Int : 378 ms P-R-T Axes : -13 090 047 degrees QTc Int : 405 ms Normal sinus rhythm Rightward axis Borderline ECG When compared with ECG of 24-SEP-2018 07:03, Sinus rhythm has replaced Electronic atrial pacemaker Vent. rate has decreased BY 64 BPM Non-specific change in ST segment in Inferior leads ST elevation has replaced ST depression in Anterior leads Nonspecific T wave abnormality has replaced inverted T waves in Inferior leads Confirmed by Tadeo ROSENTHAL ([id number]) on 10/22/2018 10:29:00 PM Referred By: WES Confirmed By:Tadeo ROSENTHAL
--- NOTE | 2018-10-23 05:32 | DIS ---
DATE OF ADMISSION: 10/19/2018 DATE OF DISCHARGE: 10/22/2018 DISCHARGE DIAGNOSIS: Choledocholithiasis post laparoscopic cholecystectomy, which was performed by Dr. Park along with appendectomy on 09/24/2018. CAT scan of the abdomen and pelvis performed on 10/19/2018, noting a small amount of free fluid in the pelvis, post cholecystectomy changes. Admission bilirubin 9.1. Discharge bilirubin 2.5. Transaminases improved post ERCP. Admission lipase 15. Post ERCP lipase 3585, discharge lipase 391. HISTORY: A 28-year-old male, presented with cholelithiasis and enlarged appendix, underwent laparoscopic appendectomy and cholecystectomy by Dr. Park on 09/24/2018. Pathology revealed a normal appendix. The patient did well postoperatively and two days prior to this admission, he had increased pain, presented to the emergency room with a bilirubin over 9. CAT scan of the abdomen and pelvis obtained. Dr. Castellanos saw him in consultation. ERCP performed, extracting the small stone, bile duct was small in caliber. Postprocedurely, he developed pancreatitis and was kept an extra day, resolving, tolerating a diet and discharged home on Tylenol, ibuprofen. FOLLOWUP: Follow up with Dr. Park in 2 to 3 weeks. DIET: As tolerated. ACTIVITY: As tolerated. Job ID: [id number]
== END 2018-10-22 13:30 | disposition home or self-care (01) | DRG 444 ==
LOC: ERS 16:28 → SURG A 18:56
PROVIDERS: ADMIT Specialist; ATTEND Specialist
PROC: 0FC98ZZ Extirpation of Matter from Common Bile Duct, Via Natural or Artificial Opening Endoscopic (ICD-10-PCS; principal; 2018-10-20)
DX: K80.51 Calculus of bile duct without cholangitis or cholecystitis with obstruction (principal); K85.90 Acute pancreatitis without necrosis or infection, unspecified; K29.70 Gastritis, unspecified, without bleeding; Z90.49 Acquired absence of other specified parts of digestive tract
CPT/HCPCS: 36415; 74177; 74330; 80048; 80053; 80076; 81003; 81015; 83690; 85025; 93005; 93010; 96361; 96365; 96375; J0360; J1100; J1650; J1885; J1956; J2001; J2175; J2250; J2270; J2405; J2550; J2704; J3480; J7120; Q9961

== ENCOUNTER 2019-02-09 18:20 | Emergency (ER) | payer SELFPAY ==
[2019-02-09] MEDS ORDERED: Ibuprofen 800 MG TAB ONE (19:04)
== END 2019-02-09 19:20 | disposition home or self-care (01) ==
LOC: ERS 18:20
DX: S16.1XXA Strain of muscle, fascia and tendon at neck level, initial encounter (principal); F31.9 Bipolar disorder, unspecified; V43.52XA Car driver injured in collision with other type car in traffic accident, initial encounter
CPT/HCPCS: 99284

== ENCOUNTER 2019-05-29 21:44 | Emergency (ER) | payer SELFPAY ==
[2019-05-29] MEDS ORDERED: Amoxicillin/Potassium Clav 875 MG TAB ONE (22:11)
[2019-05-29] MEDS ORDERED: Ibuprofen 800 MG TAB ONE (22:11)
== END 2019-05-29 22:24 | disposition home or self-care (01) ==
LOC: ERS 21:44
DX: K05.6 Periodontal disease, unspecified (principal); K03.81 Cracked tooth
CPT/HCPCS: 99282

== ENCOUNTER 2024-01-07 01:05 | Emergency (ER) | payer SELFPAY ==
[2024-01-07] MEDS ORDERED: HYDROcodone/Acetaminophen 5/325 mg Tablet ONE (01:25)
== END 2024-01-07 01:28 | disposition home or self-care (01) ==
LOC: ERS 01:05
DX: S02.5XXA Fracture of tooth (traumatic), initial encounter for closed fracture (principal); X58.XXXA Exposure to other specified factors, initial encounter
CPT/HCPCS: 99282